=== PATIENT | male | born 1990 | race African-American/Black ===

== ENCOUNTER 2017-11-15 08:23 | Emergency (ER) | payer OTHER ==
[~2017-11-15] VITALS: Ht 170.2 cm; Wt 74.8 kg
[~2017-11-15 08:23] MED LIST: EFFEXOR75 MG; LEXAPRO 10 MG T10 M1 PO; ONDANSETRON HCL4 M2; ONDANSETRON HCL4 M2 PO; XANAX 1 MG TABLE1 MG PO; XANAX XR1 MG PO; ZOFRAN ODT4 MG PO; ZOFRAN4 MG PO; ZOLOFT 50 MG TA50 M1
[2017-11-15 09:03] LABS: HEMATOCRIT 47.1 % (42.0-52.0); HEMOGLOBIN 15.8 gm/dL (14.0-18.0); MCHC 33.5 g/dL (28.0-37.0); MCV 83.6 fL (80.0-100.0); RBC 5.64 mil/uL (4.50-6.00); RDW 14.1 % (10.5-14.5); WBC 7.1 thou/uL (4.0-11.0)
[2017-11-15 09:07] LABS: CALCIUM 9.4 mg/dL (8.5-10.1); POTASSIUM 3.7 mmol/L (3.5-5.1)
[2017-11-15 09:13] LABS: ALBUMIN 4.4 g/dL (3.4-5.0); TOTAL BILIRUBIN 1.7 mg/dL (<0.1-1.0); TOTAL PROTEIN 8.2 g/dL (6.4-8.2)
[2017-11-15] MEDS ORDERED: ONDANSETRON HCL4 M2 PO (11:54)
== END 2017-11-15 12:03 | disposition home or self-care (01) ==
LOC: ER 08:23
PROVIDERS: Emergency Medicine
DX: R10.10 Upper abdominal pain, unspecified (principal); R11.2 Nausea with vomiting, unspecified; I10 Essential (primary) hypertension; F41.9 Anxiety disorder, unspecified

== ENCOUNTER 2018-01-08 09:56 | Emergency (ER) | payer BC ==
[~2018-01-08] VITALS: Ht 170.2 cm; Wt 86.2 kg
[2018-01-08 10:42] LABS: ABSOLUTE NEUTROPHILS 5.1 thou/uL (1.4-8.2); BASOPHILS 1.2 % (0.0-2.0); EOSINOPHILS 0.5 % (0.0-3.0); HEMATOCRIT 46.5 % (42.0-52.0); HEMOGLOBIN 15.7 gm/dL (14.0-18.0); LYMPHOCYTES 12.7 % (24.0-44.0); MCH 28.5 pg (26.0-34.0); MCHC 33.8 g/dL (28.0-37.0); MCV 84.4 fL (80.0-100.0); MONOCYTES 7.8 % (1.0-8.0); PLATELET COUNT 206 thou/uL (150-400); POLYS 77.8 % (36.0-66.0); RBC 5.51 mil/uL (4.50-6.00); WBC 6.6 thou/uL (4.0-11.0)
[2018-01-08 10:51] LABS: CALCIUM 9.1 mg/dL (8.5-10.1); CREATININE 0.9 mg/dL (0.7-1.3)
[2018-01-08 10:57] LABS: DIRECT BILIRUBIN 0.3 mg/dL (<0.1-0.3); TOTAL BILIRUBIN 1.3 mg/dL (<0.1-1.0); TOTAL PROTEIN 7.9 g/dL (6.4-8.2)
[2018-01-08] MEDS ORDERED: ATIVAN1 MG PO (11:06)
== END 2018-01-08 12:24 | disposition home or self-care (01) ==
LOC: ER 09:56
PROVIDERS: Emergency Medicine
DX: F10.10 Alcohol abuse, uncomplicated (principal); R11.2 Nausea with vomiting, unspecified; I10 Essential (primary) hypertension; F41.9 Anxiety disorder, unspecified

== ENCOUNTER 2018-08-17 08:49 | Emergency (ER) | payer OTHER ==
[~2018-08-17] VITALS: Ht 170.2 cm; Wt 81.7 kg
[~2018-08-17 08:49] MED LIST changes: +ATIVAN1 MG PO
[2018-08-17 10:08] LABS: HEMATOCRIT 46.3 % (42.0-52.0); HEMOGLOBIN 15.9 gm/dL (14.0-18.0); MCH 29.1 pg (26.0-34.0); MCHC 34.3 g/dL (28.0-37.0); MCV 84.7 fL (80.0-100.0); RBC 5.46 mil/uL (4.50-6.00); WBC 5.1 thou/uL (4.0-11.0)
[2018-08-17 10:13] LABS: CALCIUM 9.1 mg/dL (8.5-10.1)
[2018-08-17] MEDS ORDERED: NOHOMEMEDICATIONS (11:34)
[2018-08-17 12:35] VITALS: BP 145/76
== END 2018-08-17 12:35 | disposition home or self-care (01) ==
LOC: ER 08:49
PROVIDERS: Student in an Organized Health Care Education/Training Program
DX: F10.129 Alcohol abuse with intoxication, unspecified (principal); R11.2 Nausea with vomiting, unspecified; F41.9 Anxiety disorder, unspecified; F98.8 Other specified behavioral and emotional disorders with onset usually occurring in childhood and adolescence; I10 Essential (primary) hypertension; Y90.0 Blood alcohol level of less than 20 mg/100 ml

== ENCOUNTER 2018-08-18 11:13 | Emergency (ER) | payer OTHER ==
[~2018-08-18] VITALS: Ht 170.2 cm; Wt 81.7 kg
[~2018-08-18 11:13] MED LIST changes: +NOHOMEMEDICATIONS
[2018-08-18 12:40] LABS: HEMATOCRIT 45.7 % (42.0-52.0); HEMOGLOBIN 15.6 gm/dL (14.0-18.0); MCH 29.3 pg (26.0-34.0); MCHC 34.3 g/dL (28.0-37.0); MCV 85.4 fL (80.0-100.0); RBC 5.35 mil/uL (4.50-6.00); WBC 5.7 thou/uL (4.0-11.0)
[2018-08-18 12:53] LABS: CALCIUM 9.1 mg/dL (8.5-10.1); CREATININE 0.9 mg/dL (0.7-1.3); POTASSIUM 4.1 mmol/L (3.5-5.1)
[2018-08-18 12:59] LABS: ALBUMIN 4.1 g/dL (3.4-5.0); TOTAL BILIRUBIN 0.9 mg/dL (<0.1-1.0); TOTAL PROTEIN 8.1 g/dL (6.4-8.2)
[2018-08-18 16:15] VITALS: BP 140/97
== END 2018-08-18 17:31 | disposition home or self-care (01) ==
LOC: ER 11:13
PROVIDERS: Physician Assistant
DX: F10.10 Alcohol abuse, uncomplicated (principal); R11.2 Nausea with vomiting, unspecified; F41.9 Anxiety disorder, unspecified; F98.8 Other specified behavioral and emotional disorders with onset usually occurring in childhood and adolescence; I10 Essential (primary) hypertension; Y90.0 Blood alcohol level of less than 20 mg/100 ml

== ENCOUNTER 2018-08-19 12:58 | Emergency (ER) | payer OTHER ==
[~2018-08-19] VITALS: Ht 170.2 cm; Wt 81.7 kg
[2018-08-19 13:35] LABS: URINE BILIRUBIN NEGATIVE (Negative); URINE BLOOD 1+ (Negative); URINE CLARITY CLEAR; URINE COLOR YELLOW; URINE GLUCOSE-RANDOM* NEGATIVE (Negative); URINE KETONES NEGATIVE (Negative); URINE LEUKOCYTES-REFLEX NEGATIVE (Negative); URINE NITRITE-REFLEX NEGATIVE (Negative); URINE PROTEIN (DIPSTICK) NEGATIVE (Negative); URINE SPECIFIC GRAVITY <= 1.005 (1.005-1.035); URINE UROBILINOGEN 0.2 E.U./dl (0.2-1.0)
[2018-08-19 13:44] LABS: AMP/METHAMP Negative (Negative); BARBITURATES Negative (Negative); BENZODIAZEPINES Negative (Negative); COCAINE Negative (Negative); METHADONE Negative (Negative); OPIATES Negative (Negative); PCP Negative (Negative)
[2018-08-19 13:47] LABS: BACTERIA-REFLEX 1-9 Few /HPF (None Seen); CASTS None Seen /LPF (None Seen); CRYSTALS None Seen /LPF (None Seen); SQUAMOUS None Seen /LPF (0-3); URINE RBC None Seen /HPF (0-2); URINE WBC-REFLEX None Seen /HPF (0-5)
[2018-08-19 14:09] LABS: HEMATOCRIT 43.9 % (42.0-52.0); HEMOGLOBIN 14.5 gm/dL (14.0-18.0); MCH 28.4 pg (26.0-34.0); MCV 85.9 fL (80.0-100.0); PLATELET COUNT 247 thou/uL (150-400); RBC 5.11 mil/uL (4.50-6.00); WBC 5.7 thou/uL (4.0-11.0)
[2018-08-19 14:23] LABS: CALCIUM 8.9 mg/dL (8.5-10.1); POTASSIUM 3.6 mmol/L (3.5-5.1)
[2018-08-19 14:27] LABS: TOTAL BILIRUBIN 0.8 mg/dL (<0.1-1.0); TOTAL PROTEIN 7.9 g/dL (6.4-8.2)
[2018-08-19 14:42] LABS: ABSOLUTE NEUTROPHILS 3.8 thou/uL (1.4-8.2)
[2018-08-19 14:43] LABS: ANISOCYTOSIS 1+
[2018-08-19 16:02] VITALS: BP 142/89
== END 2018-08-19 16:11 | disposition home or self-care (01) ==
LOC: ER 12:58
PROVIDERS: Nurse Practitioner Family
DX: F10.10 Alcohol abuse, uncomplicated (principal); R11.2 Nausea with vomiting, unspecified; F41.9 Anxiety disorder, unspecified; F98.8 Other specified behavioral and emotional disorders with onset usually occurring in childhood and adolescence; I10 Essential (primary) hypertension; Y90.0 Blood alcohol level of less than 20 mg/100 ml

== ENCOUNTER 2018-08-20 13:36 | Emergency (ER) | payer OTHER ==
[~2018-08-20] VITALS: Ht 170.2 cm; Wt 81.7 kg
[2018-08-20 15:41] VITALS: BP 141/95
== END 2018-08-20 15:30 | disposition home or self-care (01) ==
LOC: ER 13:36
DX: F10.129 Alcohol abuse with intoxication, unspecified (principal); I10 Essential (primary) hypertension; F41.9 Anxiety disorder, unspecified

== ENCOUNTER 2019-03-06 13:06 | Emergency (ER) | payer OTHER ==
[~2019-03-06] VITALS: Ht 175.3 cm; Wt 77.1 kg
[2019-03-06 14:15] LABS: ABSOLUTE NEUTROPHILS 3.3 thou/uL (1.4-8.2); BASOPHILS 4.8 % (0.0-2.0); EOSINOPHILS 0.9 % (0.0-3.0); HEMATOCRIT 48.5 % (42.0-52.0); HEMOGLOBIN 16.3 gm/dL (14.0-18.0); LYMPHOCYTES 13.5 % (24.0-44.0); MCH 29.4 pg (26.0-34.0); MCHC 33.6 g/dL (28.0-37.0); MCV 87.5 fL (80.0-100.0); MONOCYTES 5.6 % (1.0-8.0); PLATELET COUNT 280 thou/uL (150-400); POLYS 75.2 % (36.0-66.0); RBC 5.54 mil/uL (4.50-6.00); RDW 14.3 % (10.5-14.5); WBC 4.4 thou/uL (4.0-11.0)
[2019-03-06 14:19] LABS: CALCIUM 9.9 mg/dL (8.5-10.1); POTASSIUM 4.3 mmol/L (3.5-5.1)
[2019-03-06 14:26] LABS: ALBUMIN 4.5 g/dL (3.4-5.0); TOTAL BILIRUBIN 0.8 mg/dL (<0.1-1.0); TOTAL PROTEIN 8.8 g/dL (6.4-8.2)
[2019-03-06 15:49] VITALS: BP 132/83
== END 2019-03-06 16:23 | disposition home or self-care (01) ==
LOC: ER 13:06
PROVIDERS: Physician Assistant
DX: S01.81XA Laceration without foreign body of other part of head, initial encounter (principal); F10.129 Alcohol abuse with intoxication, unspecified; F41.9 Anxiety disorder, unspecified; F98.8 Other specified behavioral and emotional disorders with onset usually occurring in childhood and adolescence; I10 Essential (primary) hypertension; W18.39XA Other fall on same level, initial encounter; Y92.89 Other specified places as the place of occurrence of the external cause; Y93.89 Activity, other specified; Y99.8 Other external cause status

== ENCOUNTER 2019-03-14 11:08 | Emergency (ER) | payer OTHER ==
[~2019-03-14] VITALS: Ht 170.2 cm; Wt 74.8 kg
[2019-03-14 11:08] VITALS: BP 122/75
== END 2019-03-14 11:32 | disposition home or self-care (01) ==
LOC: ER 11:08
DX: S01.81XD Laceration without foreign body of other part of head, subsequent encounter (principal); F41.9 Anxiety disorder, unspecified; F98.8 Other specified behavioral and emotional disorders with onset usually occurring in childhood and adolescence; I10 Essential (primary) hypertension; W18.39XD Other fall on same level, subsequent encounter

== ENCOUNTER 2019-10-14 09:02 | Emergency (ER) | payer OTHER ==
[~2019-10-14] VITALS: Ht 170.2 cm; Wt 72.6 kg
[2019-10-14 09:49] LABS: URINE BILIRUBIN NEGATIVE (Negative); URINE BLOOD TRACE (Negative); URINE CLARITY CLEAR; URINE COLOR YELLOW; URINE GLUCOSE-RANDOM* NEGATIVE (Negative); URINE KETONES NEGATIVE (Negative); URINE LEUKOCYTES-REFLEX NEGATIVE (Negative); URINE NITRITE-REFLEX NEGATIVE (Negative); URINE PROTEIN (DIPSTICK) TRACE (Negative); URINE SPECIFIC GRAVITY 1.015 (1.005-1.035); URINE UROBILINOGEN 0.2 E.U./dl (0.2-1.0)
[2019-10-14 09:54] LABS: ABSOLUTE NEUTROPHILS 4.5 thou/uL (1.4-8.2); BASOPHILS 1.4 % (0.0-2.0); EOSINOPHILS 0.7 % (0.0-3.0); HEMATOCRIT 47.9 % (42.0-52.0); HEMOGLOBIN 15.8 gm/dL (14.0-18.0); LYMPHOCYTES 11.4 % (24.0-44.0); MCH 29.3 pg (26.0-34.0); MCHC 32.9 g/dL (28.0-37.0); MONOCYTES 10.3 % (1.0-8.0); PLATELET COUNT 255 thou/uL (150-400); POLYS 76.2 % (36.0-66.0); RBC 5.38 mil/uL (4.50-6.00); RDW 13.9 % (10.5-14.5); WBC 5.9 thou/uL (4.0-11.0)
[2019-10-14 10:05] LABS: CALCIUM 9.3 mg/dL (8.5-10.1); POTASSIUM 4.1 mmol/L (3.5-5.1)
[2019-10-14 10:11] LABS: ALBUMIN 4.1 g/dL (3.4-5.0); TOTAL BILIRUBIN 0.5 mg/dL (<0.1-1.0); TOTAL PROTEIN 8.3 g/dL (6.4-8.2)
[2019-10-14 11:27] LABS: MAGNESIUM 2.1 mg/dL (1.8-2.4); TROPONIN-I <0.06 ng/mL (<0.06)
[2019-10-14] MEDS ORDERED: ONDANSETRON ODT8 MG PO (12:18)
[2019-10-14] MEDS ORDERED: PRILOSEC OTC20 MG PO (12:18)
[2019-10-14 12:20] LABS: AMP/METHAMP Negative (Negative); BARBITURATES Negative (Negative); BENZODIAZEPINES Negative (Negative); COCAINE Negative (Negative); METHADONE Negative (Negative); OPIATES Negative (Negative); PCP Negative (Negative)
[2019-10-14 12:40] VITALS: BP 145/93
--- NOTE | 2019-10-17 14:53 | EKG ---
[address] [address] ELECTROCARDIOGRAM REPORT Name: LALO MARTIN [facility]OURShantell[facility] [id number] Admission: 10/14/19 Attend Phys: Discharge: 10/14/19 Date of : 88 Report #: [id number] THIS REPORT FOR: //name// [facility] ED Test Date: 2019-10-14 Test Time: 09:29:15 Pat Name: LALO MARTIN Department: Room: Gender: M Optics Engineer: [place] : 1990 Requested By: Yehuda Ross Order Number: [id number] MD: Nik Macias Measurements Intervals [place] Rate: 109 P: 6 AL: 159 QRS: 21 QRSD: 76 T: 68 QT: 329 QTc: 444 Interpretive Statements Sinus tachycardia Probable left atrial enlargement ST elev, probable normal early repol pattern Baseline wander in lead(s) V5 Compared to ECG 07/19/2014 22:00:07 ST (T wave) deviation now present Electronically Signed On 10-17-2019 14:53:06 NEGOTIATOR by Nik Macias [email or web address] <ELECTRONICALLY SIGNED> By: Nik Macias MD 10/17/19 1453 [id number] [id number] Nik Macias MD /EPI
== END 2019-10-14 12:45 | disposition home or self-care (01) ==
LOC: ER 09:02
PROVIDERS: Emergency Medicine
DX: K29.70 Gastritis, unspecified, without bleeding (principal); F10.10 Alcohol abuse, uncomplicated; R11.2 Nausea with vomiting, unspecified; I10 Essential (primary) hypertension; F41.9 Anxiety disorder, unspecified; F90.9 Attention-deficit hyperactivity disorder, unspecified type; Y90.9 Presence of alcohol in blood, level not specified

== ENCOUNTER 2019-10-16 12:28 | Emergency (ER) | payer OTHER ==
[~2019-10-16] VITALS: Ht 170.2 cm; Wt 72.6 kg
[~2019-10-16 12:28] MED LIST changes: +ONDANSETRON ODT8 MG PO; +PRILOSEC OTC20 MG PO
[2019-10-16 13:02] LABS: URINE BILIRUBIN NEGATIVE (Negative); URINE BLOOD TRACE (Negative); URINE CLARITY CLEAR; URINE COLOR YELLOW; URINE GLUCOSE-RANDOM* NEGATIVE (Negative); URINE KETONES NEGATIVE (Negative); URINE LEUKOCYTES-REFLEX NEGATIVE (Negative); URINE NITRITE-REFLEX NEGATIVE (Negative); URINE PROTEIN (DIPSTICK) NEGATIVE (Negative); URINE UROBILINOGEN 0.2 E.U./dl (0.2-1.0)
[2019-10-16 14:40] LABS: ABSOLUTE NEUTROPHILS 4.5 thou/uL (1.4-8.2); BASOPHILS 1.3 % (0.0-2.0); EOSINOPHILS 0.3 % (0.0-3.0); HEMATOCRIT 47.7 % (42.0-52.0); HEMOGLOBIN 15.5 gm/dL (14.0-18.0); MCH 29.1 pg (26.0-34.0); MCHC 32.6 g/dL (28.0-37.0); MCV 89.4 fL (80.0-100.0); MONOCYTES 11.9 % (1.0-8.0); PLATELET COUNT 230 thou/uL (150-400); POLYS 74.5 % (36.0-66.0); RBC 5.33 mil/uL (4.50-6.00); RDW 13.6 % (10.5-14.5)
[2019-10-16 14:47] LABS: CALCIUM 9.6 mg/dL (8.5-10.1); CREATININE 0.8 mg/dL (0.7-1.3); POTASSIUM 4.2 mmol/L (3.5-5.1)
[2019-10-16 14:55] LABS: ALBUMIN 4.2 g/dL (3.4-5.0); TOTAL PROTEIN 8.3 g/dL (6.4-8.2)
[2019-10-16] MEDS ORDERED: TRAMADOL 50 MG50 MG PO (15:03)
[2019-10-16 17:17] VITALS: BP 130/109
== END 2019-10-16 17:17 | disposition home or self-care (01) ==
LOC: ER 12:28
PROVIDERS: Emergency Medicine
DX: K29.20 Alcoholic gastritis without bleeding (principal); F10.129 Alcohol abuse with intoxication, unspecified; I10 Essential (primary) hypertension; F41.9 Anxiety disorder, unspecified; F90.9 Attention-deficit hyperactivity disorder, unspecified type

== ENCOUNTER 2020-03-05 13:10 | Emergency (ER) | payer OTHER ==
[~2020-03-05] VITALS: Ht 170.2 cm; Wt 72.6 kg
[~2020-03-05 13:10] MED LIST changes: +TRAMADOL 50 MG50 MG PO
[2020-03-05] MEDS ORDERED: PEPCID40 MG PO ×4 (13:59→14:21)
[2020-03-05] MEDS ORDERED: ZOFRAN ODT4 MG PO ×4 (13:59→14:21)
[2020-03-05 14:28] VITALS: BP 155/102
[2020-03-06] MEDS ORDERED: PEPCID40 MG PO (13:04)
[2020-03-06] MEDS ORDERED: PROMS25 WY RECTAL (13:04)
== END 2020-03-05 14:28 | disposition home or self-care (01) ==
LOC: ER 13:10
DX: K29.20 Alcoholic gastritis without bleeding (principal); R11.2 Nausea with vomiting, unspecified; I10 Essential (primary) hypertension; F41.9 Anxiety disorder, unspecified; F98.8 Other specified behavioral and emotional disorders with onset usually occurring in childhood and adolescence

== ENCOUNTER 2020-03-06 11:40 | Emergency (ER) | payer OTHER ==
[~2020-03-06] VITALS: Ht 170.2 cm; Wt 74.8 kg
[~2020-03-06 11:40] MED LIST changes: +PEPCID40 MG PO
[2020-03-06 12:26] LABS: URINE BILIRUBIN NEGATIVE (Negative); URINE BLOOD 1+ (Negative); URINE CLARITY CLEAR; URINE COLOR YELLOW; URINE GLUCOSE-RANDOM* NEGATIVE (Negative); URINE KETONES TRACE (Negative); URINE LEUKOCYTES-REFLEX NEGATIVE (Negative); URINE NITRITE-REFLEX NEGATIVE (Negative); URINE PROTEIN (DIPSTICK) 2+ (Negative); URINE SPECIFIC GRAVITY >= 1.030 (1.005-1.035); URINE UROBILINOGEN 0.2 E.U./dl (0.2-1.0)
[2020-03-06 12:32] LABS: AMP/METHAMP Negative (Negative); BARBITURATES Negative (Negative); BENZODIAZEPINES Negative (Negative); COCAINE Negative (Negative); METHADONE Negative (Negative); OPIATES Negative (Negative); PCP Negative (Negative)
[2020-03-06 12:33] LABS: ABSOLUTE NEUTROPHILS 5.1 thou/uL (1.4-8.2); BASOPHILS 1.2 % (0.0-2.0); EOSINOPHILS 0.9 % (0.0-3.0); HEMATOCRIT 46.6 % (42.0-52.0); HEMOGLOBIN 15.8 gm/dL (14.0-18.0); LYMPHOCYTES 15.1 % (24.0-44.0); MCH 29.4 pg (26.0-34.0); MCHC 33.9 g/dL (28.0-37.0); MCV 86.8 fL (80.0-100.0); MONOCYTES 8.1 % (1.0-8.0); PLATELET COUNT 237 thou/uL (150-400); POLYS 74.7 % (36.0-66.0); RBC 5.37 mil/uL (4.50-6.00); RDW 13.1 % (10.5-14.5); WBC 6.8 thou/uL (4.0-11.0)
[2020-03-06 12:34] LABS: BACTERIA-REFLEX 1-9 Few /HPF (None Seen); CRYSTALS None Seen /LPF (None Seen); MUCUS 4-6 Moderate strn/LPF (None Seen); SQUAMOUS None Seen /LPF (0-3); URINE RBC 0-2 Rare /HPF (0-2); URINE WBC-REFLEX 0-5 Rare /HPF (0-5)
[2020-03-06 12:35] LABS: FINE GRANULAR CASTS 0-3 Few /LPF (None Seen); HYALINE CASTS 0-3 Few /LPF (None Seen)
[2020-03-06 12:40] LABS: CALCIUM 8.4 mg/dL (8.5-10.1); CREATININE 1.1 mg/dL (0.7-1.3)
[2020-03-06 12:46] LABS: TOTAL BILIRUBIN 1.2 mg/dL (<0.1-1.0); TOTAL PROTEIN 8.1 g/dL (6.4-8.2)
[2020-03-06] MEDS ORDERED: PEPCID40 MG PO (13:04)
[2020-03-06] MEDS ORDERED: PROMS25 WY RECTAL (13:04)
[2020-03-06 14:01] VITALS: BP 141/93
== END 2020-03-06 14:01 | disposition home or self-care (01) ==
LOC: ER 11:40
PROVIDERS: Nurse Practitioner Family
DX: K85.90 Acute pancreatitis without necrosis or infection, unspecified (principal); K29.20 Alcoholic gastritis without bleeding; F10.10 Alcohol abuse, uncomplicated; R11.2 Nausea with vomiting, unspecified; I10 Essential (primary) hypertension; F41.9 Anxiety disorder, unspecified; F98.8 Other specified behavioral and emotional disorders with onset usually occurring in childhood and adolescence; Y90.8 Blood alcohol level of 240 mg/100 ml or more

== ENCOUNTER 2020-04-02 15:39 | Emergency (ER) | payer OTHER ==
[~2020-04-02] VITALS: Ht 170.2 cm; Wt 72.6 kg
[~2020-04-02 15:39] MED LIST changes: +PROMS25 WY RECTAL
[2020-04-02 17:15] LABS: ABSOLUTE NEUTROPHILS 3.8 thou/uL (1.4-8.2); BASOPHILS 1.4 % (0.0-2.0); EOSINOPHILS 2.8 % (0.0-3.0); HEMATOCRIT 43.9 % (42.0-52.0); HEMOGLOBIN 14.8 gm/dL (14.0-18.0); LYMPHOCYTES 21.7 % (24.0-44.0); MCH 29.5 pg (26.0-34.0); MCHC 33.7 g/dL (28.0-37.0); MCV 87.7 fL (80.0-100.0); MONOCYTES 4.8 % (1.0-8.0); PLATELET COUNT 269 thou/uL (150-400); POLYS 69.3 % (36.0-66.0); RDW 13.7 % (10.5-14.5); WBC 5.5 thou/uL (4.0-11.0)
[2020-04-02 17:26] LABS: CALCIUM 8.4 mg/dL (8.5-10.1); CREATININE 0.9 mg/dL (0.7-1.3); POTASSIUM 3.9 mmol/L (3.5-5.1)
[2020-04-02 17:32] LABS: ALBUMIN 3.6 g/dL (3.4-5.0); TOTAL BILIRUBIN 0.3 mg/dL (0.2-1.0); TOTAL PROTEIN 7.4 g/dL (6.4-8.2)
[2020-04-02 18:57] VITALS: BP 129/82
[2020-04-03] MEDS ORDERED: PRILOSEC OTC20 MG PO (12:04)
[2020-04-03] MEDS ORDERED: ONDANSETRON ODT8 MG PO (12:04)
== END 2020-04-02 19:06 | disposition home or self-care (01) ==
LOC: ER 15:39
PROVIDERS: Physician Assistant
DX: F10.10 Alcohol abuse, uncomplicated (principal); R19.7 Diarrhea, unspecified; R11.2 Nausea with vomiting, unspecified; R10.13 Epigastric pain; R05 Cough; F41.9 Anxiety disorder, unspecified; F98.8 Other specified behavioral and emotional disorders with onset usually occurring in childhood and adolescence; I10 Essential (primary) hypertension; Z87.891 Personal history of nicotine dependence; Z79.899 Other long term (current) drug therapy

== ENCOUNTER 2020-04-03 10:55 | Emergency (ER) | payer OTHER ==
[~2020-04-03] VITALS: Ht 175.3 cm; Wt 68.0 kg
[2020-04-03] MEDS ORDERED: ONDANSETRON ODT8 MG PO (12:04)
[2020-04-03] MEDS ORDERED: PRILOSEC OTC20 MG PO (12:04)
[2020-04-03 12:19] VITALS: BP 129/81
== END 2020-04-03 12:23 | disposition home or self-care (01) ==
LOC: ER 10:55
DX: F10.120 Alcohol abuse with intoxication, uncomplicated (principal); R10.84 Generalized abdominal pain; R11.2 Nausea with vomiting, unspecified; R00.0 Tachycardia, unspecified; I10 Essential (primary) hypertension; F41.9 Anxiety disorder, unspecified; F98.8 Other specified behavioral and emotional disorders with onset usually occurring in childhood and adolescence; Z87.891 Personal history of nicotine dependence

== ENCOUNTER 2021-04-02 05:45 | Inpatient (IN) | payer OTHER ==
[~2021-04-02] VITALS: Ht 170.2 cm; Wt 83.9 kg
[2021-04-02 05:46] VITALS: BP 154/100
[2021-04-02 06:22] LABS: ABSOLUTE NEUTROPHILS 3.2 thou/uL (1.4-8.2); BASOPHILS 1.3 % (0.0-2.0); EOSINOPHILS 4.6 % (0.0-3.0); HEMOGLOBIN 15.3 gm/dL (14.0-18.0); LYMPHOCYTES 23.3 % (24.0-44.0); MCH 28.4 pg (26.0-34.0); MCHC 33.3 g/dL (28.0-37.0); MCV 85.2 fL (80.0-100.0); MONOCYTES 8.7 % (1.0-8.0); PLATELET COUNT 283 thou/uL (150-400); POLYS 62.1 % (36.0-66.0); RDW 14.5 % (10.5-14.5); WBC 5.2 thou/uL (4.0-11.0)
[2021-04-02 06:25] LABS: URINE BILIRUBIN NEGATIVE (Negative); URINE BLOOD TRACE (Negative); URINE CLARITY CLEAR; URINE COLOR YELLOW; URINE GLUCOSE-RANDOM* NEGATIVE (Negative); URINE KETONES NEGATIVE (Negative); URINE LEUKOCYTES-REFLEX NEGATIVE (Negative); URINE NITRITE-REFLEX NEGATIVE (Negative); URINE PROTEIN (DIPSTICK) TRACE (Negative); URINE SPECIFIC GRAVITY >= 1.030 (1.005-1.035); URINE UROBILINOGEN 0.2 E.U./dl (0.2-1.0)
[2021-04-02 06:28] LABS: CALCIUM 8.4 mg/dL (8.5-10.1); CREATININE 1.1 mg/dL (0.7-1.3); POTASSIUM 3.8 mmol/L (3.5-5.1)
[2021-04-02 06:34] LABS: TOTAL BILIRUBIN 0.6 mg/dL (0.2-1.0); TOTAL PROTEIN 8.2 g/dL (6.4-8.2)
[2021-04-02 07:45] VITALS: BP 154/100
[2021-04-02 09:30] VITALS: BP 120/71
--- NOTE | 2021-04-02 13:57 | NUR ---
ADMISSION NOTE: PT ALERT AND ORIENTED X4, DENIES ANY CHEST PAIN, NAUSEA AND VOMITTING. PT ON ROOM AIR, NO SIGNS OF DISTRESS NOTED. PT ORIENTED TO ROOM. ADMISSION AND ASSESSMENT COMPLETED. SKIN INATCT. CONSENTS SIGNS BY PT. ALCOHOL WITHDRAWAL PROTOCOL IN PLACE. SEIZURE AND FALL PRECAUTIONS IN PLACE. DENIES ANY NEEDS SON, WILLC ONTINUE MONITOR
[2021-04-02 16:23] VITALS: BP 146/91
[2021-04-02 20:22] VITALS: BP 148/100
[2021-04-02 23:58] VITALS: BP 151/97
[2021-04-03 03:02] VITALS: BP 129/85
--- NOTE | 2021-04-03 04:43 | NUR ---
PT PROGRESSING TOWARDS D/C GOALS. VSS THIS AM AFEBRILE. PT STATED HAS MILD ANXIETY. ATIVAN GIVEN. NO C/O PAIN THIS AM. HE IS RESTING QUIETLY SLEEPING. NO S/S SZ ACTIVITY. NO TREMORS NOTED.
[2021-04-03 05:31] LABS: HEMATOCRIT 42.7 % (42.0-52.0); HEMOGLOBIN 14.2 gm/dL (14.0-18.0); MCH 28.8 pg (26.0-34.0); MCHC 33.3 g/dL (28.0-37.0); MCV 86.5 fL (80.0-100.0); RBC 4.93 mil/uL (4.50-6.00); WBC 6.4 thou/uL (4.0-11.0)
[2021-04-03 06:00] LABS: CALCIUM 7.9 mg/dL (8.5-10.1); CREATININE 0.9 mg/dL (0.7-1.3); POTASSIUM 3.3 mmol/L (3.5-5.1)
[2021-04-03 07:20] VITALS: BP 129/93
[2021-04-03 09:49] VITALS: BP 129/93
--- NOTE | 2021-04-03 14:26 | NUR ---
PT DISCHARGED HOME AT THIS TIME. HE IS ALERT ORIENTED X3. PLEASANT WITH CARE. DOES NOT SEEM TO BE IN PAIN. NO SIGNS OF WITDRAWALS NOTED.
== END 2021-04-03 14:27 | disposition home or self-care (01) | DRG 440 ==
LOC: ER 05:45 → 3W 09:35 → ER 09:35 → 3W 10:26
PROVIDERS: Emergency Medicine; ADMIT Hospitalist; ATTEND Hospitalist
DX: K85.90 Acute pancreatitis without necrosis or infection, unspecified (principal); F41.9 Anxiety disorder, unspecified; F10.129 Alcohol abuse with intoxication, unspecified; I10 Essential (primary) hypertension; E86.0 Dehydration; Y90.9 Presence of alcohol in blood, level not specified; Z87.891 Personal history of nicotine dependence
CPT/HCPCS: 10080

== ENCOUNTER 2021-04-15 13:14 | Inpatient (IN) | payer OTHER ==
[~2021-04-15] VITALS: Ht 170.2 cm; Wt 69.4 kg
[2021-04-15 13:24] VITALS: BP 149/105
[2021-04-15 14:13] LABS: URINE BILIRUBIN NEGATIVE (Negative); URINE BLOOD TRACE (Negative); URINE CLARITY CLEAR; URINE COLOR YELLOW; URINE GLUCOSE-RANDOM* NEGATIVE (Negative); URINE KETONES NEGATIVE (Negative); URINE LEUKOCYTES-REFLEX TRACE (Negative); URINE NITRITE-REFLEX NEGATIVE (Negative); URINE PROTEIN (DIPSTICK) NEGATIVE (Negative); URINE SPECIFIC GRAVITY <= 1.005 (1.005-1.035); URINE UROBILINOGEN 0.2 E.U./dl (0.2-1.0)
[2021-04-15 14:57] LABS: HEMATOCRIT 47.3 % (42.0-52.0); HEMOGLOBIN 15.4 gm/dL (14.0-18.0); MCH 28.5 pg (26.0-34.0); MCHC 32.6 g/dL (28.0-37.0); MCV 87.3 fL (80.0-100.0); RBC 5.42 mil/uL (4.50-6.00); RDW 14.2 % (10.5-14.5); WBC 6.3 thou/uL (4.0-11.0)
[2021-04-15 15:29] LABS: ALBUMIN 3.8 g/dL (3.4-5.0); CALCIUM 8.6 mg/dL (8.5-10.1); CREATININE 0.9 mg/dL (0.7-1.3); MAGNESIUM 2.4 mg/dL (1.8-2.4); POTASSIUM 4.4 mmol/L (3.5-5.1); TOTAL BILIRUBIN 0.3 mg/dL (0.2-1.0); TOTAL PROTEIN 8.3 g/dL (6.4-8.2)
[2021-04-15 17:43] VITALS: BP 143/105
--- NOTE | 2021-04-15 19:24 | NUR ---
RECIEVED THE PATIENT FROM EMERGENCY DUE TO NAUSEA, VOMITING AND ALCOHOL INTOXICATION, INITIAL VITALS SIGNS TAKEN, CONNECTED TO THE SECRETARY TO THE VICE PRESIDENT.ON ROOM AIR BREATHING SPONTANEOUSLY.NOT IN PAIN OR DISTRESS.NEEDS ATTENDED.HANDED OVER TO THE NEXT SHIFT FOR COMPLETION OF ADMISSION AND FOR FURTHER CARE.
[2021-04-15 20:15] VITALS: BP 148/101
[2021-04-16 04:23] LABS: ALBUMIN 3.9 g/dL (3.4-5.0); CALCIUM 8.7 mg/dL (8.5-10.1); CREATININE 0.9 mg/dL (0.7-1.3); PHOSPHORUS 3.6 mg/dL (2.5-4.9); POTASSIUM 3.6 mmol/L (3.5-5.1)
[2021-04-16 04:45] VITALS: BP 157/105
[2021-04-16 07:31] VITALS: BP 160/118
[2021-04-16 11:02] VITALS: BP 165/106
--- NOTE | 2021-04-16 13:08 | NUR ---
Assessment completed w/ pt at bedside. Pt is A&Ox4 Pt lives in 1 lvl home w/ full flight of satirs to basement w/ parents NOK: Father Lenny [phone] DPOA: None - Parents to make decisions if incapacitated ADLs: Independent - no DME No SNF/Hx/Acute rehab/Dialysis/Hospice/LTACH PCP: None Insurance: Medicaid of [place] RX: [facility] [id number], [facility] [id number] Covid Vaccine: None Social barriers: ETOH, 2-4 beers daily, former smoker Transportation: Family vehicle SW received a consult to meet w/ pt at bedside to compelete an assessment for current/active ETOH abuse. SW met w/ pt to complete assessment, Mother arrived at the end of assessment. SW & pt discussed current ETOH abuse and pt is not interested in furthing tx in substance abuse facility. SW provided additonal community resources to pt and Mother. Pt was receptive to Communtiy resource guide and additonal chemical/alcohol dependency facility list. No further needs identified at this time.
[2021-04-16 15:14] VITALS: BP 167/109
--- NOTE | 2021-04-16 17:39 | NUR ---
PT ALERT AND ORIENTED. HAD ELEVATED BP THIS SHIFT. DR ALEGRE NOTIFIED. BP MED ORDERED. DENIED HAVING PAIN OR DISCOMFORT. NO CONCERNS AT THIS TIME.
[2021-04-16 19:27] VITALS: BP 160/103
[2021-04-17 03:00] VITALS: BP 161/114
[2021-04-17 04:46] LABS: ALBUMIN 3.2 g/dL (3.4-5.0); CALCIUM 8.7 mg/dL (8.5-10.1); CREATININE 0.8 mg/dL (0.7-1.3); MAGNESIUM 1.9 mg/dL (1.8-2.4); POTASSIUM 3.7 mmol/L (3.5-5.1); TOTAL BILIRUBIN 1.5 mg/dL (0.2-1.0); TOTAL PROTEIN 7.4 g/dL (6.4-8.2)
[2021-04-17 10:03] VITALS: BP 1485/96
[2021-04-17 11:10] VITALS: BP 152/106
[2021-04-17 15:27] VITALS: BP 140/96
--- NOTE | 2021-04-17 16:18 | NUR ---
ASSUMED CARE SHIFT CHANGE. VSS, C/O PAIN DOES NOT EXPRESS NEED FOR PAIN MEDS, CONT TO ASSESS. NO S/SX ALCOHOL WITHDRAW, APPETITE FAIR, REMIANS ON CLR LIQ DIET. PLAN FOR POSSIBLE DC HOME TOMORROW ONCE MEDICALLY STABLE. CONT TO FOLLOW POC. WILL PASS ON REPORT TO NOC RN.
[2021-04-17 19:26] VITALS: BP 140/96
[2021-04-18 04:55] VITALS: BP 148/101
[2021-04-18 05:39] LABS: ALBUMIN 2.8 g/dL (3.4-5.0); CALCIUM 8.3 mg/dL (8.5-10.1); CREATININE 0.7 mg/dL (0.7-1.3); POTASSIUM 3.2 mmol/L (3.5-5.1); TOTAL BILIRUBIN 1.6 mg/dL (0.2-1.0); TOTAL PROTEIN 6.8 g/dL (6.4-8.2)
[2021-04-18 07:43] VITALS: BP 146/103
[2021-04-18] MEDS ORDERED: CLONIDINE HCL0.3 M3 PO (08:23)
[2021-04-18] MEDS ORDERED: CHLORDIAZEPOXID25 M1 PO (08:24)
[2021-04-18 09:12] VITALS: BP 146/103
[2021-04-18 09:56] VITALS: BP 149/105
== END 2021-04-18 10:20 | disposition home or self-care (01) | DRG 440 ==
LOC: ER 13:14 → 2N 16:26 → EROBS 16:26 → 2N 17:47
PROVIDERS: Nurse Practitioner Family; ADMIT Hospitalist; ATTEND Hospitalist
DX: K85.20 Alcohol induced acute pancreatitis without necrosis or infection (principal); I10 Essential (primary) hypertension; F41.9 Anxiety disorder, unspecified; F90.9 Attention-deficit hyperactivity disorder, unspecified type; Y90.9 Presence of alcohol in blood, level not specified; F10.229 Alcohol dependence with intoxication, unspecified; Z79.899 Other long term (current) drug therapy; Z87.891 Personal history of nicotine dependence
CPT/HCPCS: 10081; 10194

== ENCOUNTER 2021-05-14 15:22 | Emergency (ER) | payer OTHER ==
[~2021-05-14] VITALS: Ht 170.2 cm; Wt 79.4 kg
[~2021-05-14 15:22] MED LIST changes: +CHLORDIAZEPOXID25 M1 PO; +CLONIDINE HCL0.3 M3 PO
[2021-05-14 15:42] LABS: URINE BILIRUBIN NEGATIVE (Negative); URINE BLOOD TRACE (Negative); URINE CLARITY CLEAR; URINE COLOR YELLOW; URINE GLUCOSE-RANDOM* NEGATIVE (Negative); URINE KETONES NEGATIVE (Negative); URINE LEUKOCYTES-REFLEX NEGATIVE (Negative); URINE NITRITE-REFLEX NEGATIVE (Negative); URINE PROTEIN (DIPSTICK) NEGATIVE (Negative); URINE SPECIFIC GRAVITY <= 1.005 (1.005-1.035); URINE UROBILINOGEN 0.2 E.U./dl (0.2-1.0)
[2021-05-14 16:10] LABS: ABSOLUTE NEUTROPHILS 2.7 thou/uL (1.4-8.2); BASOPHILS 1.5 % (0.0-2.0); EOSINOPHILS 5.1 % (0.0-3.0); HEMATOCRIT 41.4 % (42.0-52.0); HEMOGLOBIN 14.1 gm/dL (14.0-18.0); MCH 29.2 pg (26.0-34.0); MCV 85.9 fL (80.0-100.0); MONOCYTES 14.8 % (1.0-8.0); PLATELET COUNT 212 thou/uL (150-400); POLYS 57.6 % (36.0-66.0); RBC 4.82 mil/uL (4.50-6.00); RDW 13.8 % (10.5-14.5); WBC 4.7 thou/uL (4.0-11.0)
[2021-05-14 16:24] LABS: CALCIUM 8.3 mg/dL (8.5-10.1); POTASSIUM 3.7 mmol/L (3.5-5.1)
[2021-05-14 16:30] LABS: ALBUMIN 3.8 g/dL (3.4-5.0); TOTAL BILIRUBIN 0.5 mg/dL (0.2-1.0); TOTAL PROTEIN 7.7 g/dL (6.4-8.2)
[2021-05-14] MEDS ORDERED: ZOFRAN ODT4 MG PO (16:56)
[2021-05-14 17:05] VITALS: BP 158/107
--- NOTE | 2021-05-15 10:32 | EKG ---
[place] [address] [facility] [facility] [place] [address] ELECTROCARDIOGRAM REPORT Name: LALO MARTIN JENNIFER [facility]ell[facility]ell[facility] [id number] Admission: 05/14/21 Attend Phys: Discharge: 05/14/21 Date of : 88 Report #: [id number] [facility] ED Test Date: 2021-05-14 Test Time: 15:39:57 Pat Name: LALO MARTIN Department: Room: Gender: Logistics Assistant: FABIAN : 1990 Requested By: Braden Thomason Order Number: [id number] MD: Jhony Rivera Measurements Intervals [place] Rate: 107 P: 29 [place]: 157 QRS: 23 QRSD: 87 T: 68 QT: 354 QTc: 473 Interpretive Statements Sinus tachycardia ST elev, probable normal early repol pattern Borderline prolonged QT interval Compared to ECG 10/14/2019 09:29:15 No significant changes Electronically Signed On 05-15-2021 10:32:05 CDT by Jhony Rivera [email or web address] <ELECTRONICALLY SIGNED> By: Jhony Rivera MD, [facility] 05/15/21 1032 1539 153 Jhony Rivera MD, FACC /EPI
== END 2021-05-14 17:05 | disposition home or self-care (01) ==
LOC: ER 15:22
PROVIDERS: Emergency Medicine
DX: F10.129 Alcohol abuse with intoxication, unspecified (principal); R10.9 Unspecified abdominal pain; F41.9 Anxiety disorder, unspecified; F90.9 Attention-deficit hyperactivity disorder, unspecified type; I10 Essential (primary) hypertension; Z87.891 Personal history of nicotine dependence

== ENCOUNTER 2021-06-04 08:45 | Emergency (ER) | payer OTHER ==
[~2021-06-04] VITALS: Ht 170.2 cm; Wt 77.1 kg
[2021-06-04 08:59] LABS: URINE BILIRUBIN NEGATIVE (Negative); URINE BLOOD TRACE (Negative); URINE CLARITY CLEAR; URINE COLOR YELLOW; URINE GLUCOSE-RANDOM* NEGATIVE (Negative); URINE KETONES NEGATIVE (Negative); URINE LEUKOCYTES-REFLEX NEGATIVE (Negative); URINE NITRITE-REFLEX NEGATIVE (Negative); URINE PROTEIN (DIPSTICK) NEGATIVE (Negative); URINE SPECIFIC GRAVITY <= 1.005 (1.005-1.035); URINE UROBILINOGEN 0.2 E.U./dl (0.2-1.0)
[2021-06-04 09:25] LABS: ABSOLUTE NEUTROPHILS 3.3 thou/uL (1.4-8.2); BASOPHILS 0.7 % (0.0-2.0); EOSINOPHILS 4.8 % (0.0-3.0); HEMATOCRIT 43.6 % (42.0-52.0); HEMOGLOBIN 14.8 gm/dL (14.0-18.0); LYMPHOCYTES 16.8 % (24.0-44.0); MCH 29.7 pg (26.0-34.0); MCV 87.4 fL (80.0-100.0); MONOCYTES 14.2 % (1.0-8.0); PLATELET COUNT 280 thou/uL (150-400); POLYS 63.5 % (36.0-66.0); RBC 4.99 mil/uL (4.50-6.00); RDW 14.7 % (10.5-14.5); WBC 5.2 thou/uL (4.0-11.0)
[2021-06-04 09:29] LABS: CALCIUM 8.6 mg/dL (8.5-10.1); CREATININE 0.9 mg/dL (0.7-1.3); POTASSIUM 4.2 mmol/L (3.5-5.1)
[2021-06-04 09:35] LABS: ALBUMIN 3.8 g/dL (3.4-5.0); TOTAL BILIRUBIN 0.4 mg/dL (0.2-1.0)
[2021-06-04] MEDS ORDERED: ZOFRAN ODT4 MG PO (09:37)
[2021-06-04 10:20] VITALS: BP 139/96
== END 2021-06-04 10:20 | disposition home or self-care (01) ==
LOC: ER 08:45
PROVIDERS: Emergency Medicine
DX: K29.20 Alcoholic gastritis without bleeding (principal); R10.13 Epigastric pain; F41.9 Anxiety disorder, unspecified; I10 Essential (primary) hypertension; F10.10 Alcohol abuse, uncomplicated; Z79.899 Other long term (current) drug therapy; Z87.891 Personal history of nicotine dependence

== ENCOUNTER 2021-06-12 14:15 | Emergency (ER) | payer OTHER ==
[~2021-06-12] VITALS: Ht 170.2 cm; Wt 74.8 kg
[2021-06-12] MEDS ORDERED: NOHOMEMEDICATIONS (14:48)
[2021-06-12 17:26] LABS: URINE BILIRUBIN 2+ (Negative); URINE BLOOD 2+ (Negative); URINE CLARITY CLEAR; URINE COLOR ORANGE; URINE GLUCOSE-RANDOM* NEGATIVE (Negative); URINE KETONES 3+ (Negative); URINE LEUKOCYTES-REFLEX NEGATIVE (Negative); URINE PROTEIN (DIPSTICK) 2+ (Negative); URINE SPECIFIC GRAVITY >= 1.030 (1.005-1.035)
[2021-06-12 17:29] LABS: ABSOLUTE NEUTROPHILS 8.5 thou/uL (1.4-8.2); BASOPHILS 0.1 % (0.0-2.0); EOSINOPHILS 0.5 % (0.0-3.0); HEMATOCRIT 48.5 % (42.0-52.0); HEMOGLOBIN 15.9 gm/dL (14.0-18.0); LYMPHOCYTES 5.4 % (24.0-44.0); MCH 28.9 pg (26.0-34.0); MCHC 32.7 g/dL (28.0-37.0); MCV 88.2 fL (80.0-100.0); MONOCYTES 9.7 % (1.0-8.0); PLATELET COUNT 160 thou/uL (150-400); POLYS 84.3 % (36.0-66.0); RDW 14.5 % (10.5-14.5); WBC 10.1 thou/uL (4.0-11.0)
[2021-06-12 17:32] LABS: URINE NITRITE-REFLEX POSITIVE (Negative)
[2021-06-12 17:33] LABS: ICTOTEST (BILI CONFIRMATORY) Positive (Negative)
[2021-06-12 17:41] LABS: CALCIUM 9.8 mg/dL (8.5-10.1); CREATININE 0.9 mg/dL (0.7-1.3); POTASSIUM 3.7 mmol/L (3.5-5.1)
[2021-06-12 17:44] LABS: FINE GRANULAR CASTS 0-3 Few /LPF (None Seen); SQUAMOUS 0-3 Few /LPF (0-3)
[2021-06-12 17:45] LABS: BACTERIA-REFLEX None Seen /HPF (None Seen); CRYSTALS None Seen /LPF (None Seen); MUCUS >6 Heavy strn/LPF (None Seen); URINE RBC 1-2 Rare /HPF (NONE SEEN); URINE WBC-REFLEX 0-5 Rare /HPF (0-5)
[2021-06-12 17:47] LABS: ALBUMIN 4.4 g/dL (3.4-5.0); MAGNESIUM 2.1 mg/dL (1.8-2.4); TOTAL BILIRUBIN 2.7 mg/dL (0.2-1.0)
[2021-06-12] MEDS ORDERED: ZOFRAN ODT4 MG PO (18:44)
[2021-06-12 18:57] VITALS: BP 157/102
== END 2021-06-12 18:57 | disposition home or self-care (01) ==
LOC: ER 14:15
PROVIDERS: Nurse Practitioner Family
DX: K85.20 Alcohol induced acute pancreatitis without necrosis or infection (principal); R16.0 Hepatomegaly, not elsewhere classified; F10.10 Alcohol abuse, uncomplicated; F41.9 Anxiety disorder, unspecified; I10 Essential (primary) hypertension; Z87.891 Personal history of nicotine dependence

== ENCOUNTER 2021-09-30 15:25 | Emergency (ER) | payer OTHER ==
[~2021-09-30] VITALS: Ht 170.2 cm; Wt 74.8 kg
[2021-09-30 17:09] LABS: ABSOLUTE NEUTROPHILS 7.5 thou/uL (1.4-8.2); BASOPHILS 0.7 % (0.0-2.0); EOSINOPHILS 0.1 % (0.0-3.0); HEMATOCRIT 49.3 % (42.0-52.0); HEMOGLOBIN 16.2 gm/dL (14.0-18.0); LYMPHOCYTES 7.1 % (24.0-44.0); MCH 28.7 pg (26.0-34.0); MCHC 32.9 g/dL (28.0-37.0); MCV 87.3 fL (80.0-100.0); MONOCYTES 8.2 % (1.0-8.0); PLATELET COUNT 244 thou/uL (150-400); POLYS 83.9 % (36.0-66.0); RBC 5.65 mil/uL (4.50-6.00); RDW 13.5 % (10.5-14.5)
[2021-09-30 17:33] LABS: CALCIUM 9.9 mg/dL (8.5-10.1); CREATININE 0.8 mg/dL (0.7-1.3); POTASSIUM 4.5 mmol/L (3.5-5.1)
[2021-09-30 17:40] LABS: ALBUMIN 4.6 g/dL (3.4-5.0); TOTAL BILIRUBIN 3.3 mg/dL (0.2-1.0); TOTAL PROTEIN 8.5 g/dL (6.4-8.2)
[2021-09-30] MEDS ORDERED: ONDANSETRON HCL4 M2 PO (20:42)
[2021-09-30 20:48] VITALS: BP 147/93
== END 2021-09-30 20:48 | disposition home or self-care (01) ==
LOC: ER 15:25
PROVIDERS: Emergency Medicine
DX: R11.10 Vomiting, unspecified (principal); F41.9 Anxiety disorder, unspecified; I10 Essential (primary) hypertension; F10.10 Alcohol abuse, uncomplicated; Z79.899 Other long term (current) drug therapy; Z87.891 Personal history of nicotine dependence

== ENCOUNTER 2021-10-26 15:23 | Emergency (ER) | payer OTHER ==
[2021-10-26] MEDS ORDERED: ZOFRAN ODT4 MG PO (17:31)
== END 2021-10-26 18:06 | disposition home or self-care (01) ==
LOC: ER 15:23
DX: R11.2 Nausea with vomiting, unspecified (principal); Z20.822 Contact with and (suspected) exposure to COVID-19; I10 Essential (primary) hypertension; Z87.891 Personal history of nicotine dependence

== ENCOUNTER 2021-11-05 13:09 | Emergency (ER) | payer OTHER ==
[~2021-11-05] VITALS: Ht 170.2 cm; Wt 74.8 kg
[2021-11-05 13:45] LABS: URINE BILIRUBIN NEGATIVE (Negative); URINE BLOOD 1+ (Negative); URINE CLARITY CLEAR; URINE COLOR YELLOW; URINE GLUCOSE-RANDOM* NEGATIVE (Negative); URINE KETONES NEGATIVE (Negative); URINE LEUKOCYTES-REFLEX NEGATIVE (Negative); URINE NITRITE-REFLEX NEGATIVE (Negative); URINE PROTEIN (DIPSTICK) NEGATIVE (Negative); URINE SPECIFIC GRAVITY <= 1.005 (1.005-1.035); URINE UROBILINOGEN 0.2 E.U./dl (0.2-1.0)
[2021-11-05 13:53] LABS: AMP/METHAMP Negative (Negative); BARBITURATES Negative (Negative); BENZODIAZEPINES Negative (Negative); COCAINE Negative (Negative); METHADONE Negative (Negative); OPIATES Negative (Negative); PCP Negative (Negative)
[2021-11-05 13:58] LABS: CASTS None Seen /LPF (None Seen); SQUAMOUS 0-3 Few /LPF (0-3); URINE WBC-REFLEX 0-5 Rare /HPF (0-5)
[2021-11-05 13:59] LABS: BACTERIA-REFLEX 1-9 Few /HPF (None Seen); CRYSTALS None Seen /LPF (None Seen); URINE RBC 1-2 Rare /HPF (NONE SEEN)
[2021-11-05 14:39] LABS: ABSOLUTE NEUTROPHILS 5.9 thou/uL (1.4-8.2); BASOPHILS 0.4 % (0.0-2.0); EOSINOPHILS 1.2 % (0.0-3.0); HEMATOCRIT 47.2 % (42.0-52.0); HEMOGLOBIN 15.3 gm/dL (14.0-18.0); LYMPHOCYTES 8.8 % (24.0-44.0); MCH 28.9 pg (26.0-34.0); MCHC 32.5 g/dL (28.0-37.0); MONOCYTES 19.6 % (1.0-8.0); PLATELET COUNT 172 thou/uL (150-400); RDW 13.9 % (10.5-14.5); WBC 8.4 thou/uL (4.0-11.0)
[2021-11-05 14:50] LABS: CALCIUM 9.2 mg/dL (8.5-10.1); CREATININE 0.9 mg/dL (0.7-1.3); POTASSIUM 3.3 mmol/L (3.5-5.1)
[2021-11-05 14:55] LABS: ALBUMIN 3.8 g/dL (3.4-5.0); TOTAL BILIRUBIN 1.3 mg/dL (0.2-1.0); TOTAL PROTEIN 7.9 g/dL (6.4-8.2)
[2021-11-05] MEDS ORDERED: ZOFRAN ODT4 MG PO (15:36)
[2021-11-05 15:46] VITALS: BP 140/80
== END 2021-11-05 15:46 | disposition home or self-care (01) ==
LOC: ER 13:09
PROVIDERS: Physician Assistant
DX: R10.84 Generalized abdominal pain (principal); Z20.822 Contact with and (suspected) exposure to COVID-19; R11.2 Nausea with vomiting, unspecified; F41.9 Anxiety disorder, unspecified; I10 Essential (primary) hypertension; F90.9 Attention-deficit hyperactivity disorder, unspecified type; Z72.89 Other problems related to lifestyle; Z87.891 Personal history of nicotine dependence

== ENCOUNTER 2021-12-01 15:26 | Emergency (ER) | payer OTHER ==
[~2021-12-01] VITALS: Ht 170.2 cm; Wt 79.4 kg
[2021-12-01 15:48] LABS: ABSOLUTE NEUTROPHILS 5.1 thou/uL (1.4-8.2); BASOPHILS 1.1 % (0.0-2.0); EOSINOPHILS 0.6 % (0.0-3.0); HEMATOCRIT 47.3 % (42.0-52.0); HEMOGLOBIN 15.7 gm/dL (14.0-18.0); LYMPHOCYTES 20.8 % (24.0-44.0); MCH 28.7 pg (26.0-34.0); MCHC 33.2 g/dL (28.0-37.0); MCV 86.4 fL (80.0-100.0); PLATELET COUNT 287 thou/uL (150-400); POLYS 68.5 % (36.0-66.0); RBC 5.47 mil/uL (4.50-6.00); RDW 13.8 % (10.5-14.5); WBC 7.4 thou/uL (4.0-11.0)
[2021-12-01 15:56] LABS: CALCIUM 9.2 mg/dL (8.5-10.1); CREATININE 0.9 mg/dL (0.7-1.3)
[2021-12-01 16:04] LABS: ALBUMIN 4.2 g/dL (3.4-5.0); TOTAL BILIRUBIN 0.9 mg/dL (0.2-1.0); TOTAL PROTEIN 8.1 g/dL (6.4-8.2)
[2021-12-01 16:37] LABS: URINE BILIRUBIN NEGATIVE (Negative); URINE BLOOD TRACE (Negative); URINE CLARITY CLEAR; URINE COLOR YELLOW; URINE GLUCOSE-RANDOM* NEGATIVE (Negative); URINE KETONES NEGATIVE (Negative); URINE LEUKOCYTES-REFLEX NEGATIVE (Negative); URINE PROTEIN (DIPSTICK) NEGATIVE (Negative); URINE SPECIFIC GRAVITY 1.025 (1.005-1.035); URINE UROBILINOGEN 0.2 E.U./dl (0.2-1.0)
[2021-12-01 16:41] LABS: URINE NITRITE-REFLEX POSITIVE (Negative)
[2021-12-01 17:05] VITALS: BP 136/92
[2021-12-01 17:05] LABS: BACTERIA-REFLEX 1-9 Few /HPF (None Seen); CASTS None Seen /LPF (None Seen); CRYSTALS None Seen /LPF (None Seen); SQUAMOUS 0-3 Few /LPF (0-3); URINE RBC 1-2 Rare /HPF (NONE SEEN); URINE WBC-REFLEX 0-5 Rare /HPF (0-5)
== END 2021-12-01 17:05 | disposition home or self-care (01) ==
LOC: ER 15:26
PROVIDERS: Emergency Medicine
DX: R11.2 Nausea with vomiting, unspecified (principal); F10.10 Alcohol abuse, uncomplicated; F17.210 Nicotine dependence, cigarettes, uncomplicated